=== PATIENT | female | born 1980 | race Caucasian/White ===

== ENCOUNTER 2016-11-26 15:41 | Emergency (ER) | payer OTHER ==
[2016-11-26] MEDS ORDERED: KETOROLAC 60 MG/2 ML VIAL IVP STA (17:19)
[2016-11-26] MEDS ORDERED: ONDANSETRON 4 MG/2 ML VIAL IVP STA (17:19)
[2016-11-26] MEDS ORDERED: ONDANSETRON 4 MG/2 ML VIAL ONE (17:26)
[2016-11-26] MEDS ORDERED: KETOROLAC 30 MG/ML VIAL ONE (17:26)
[2016-11-26] MEDS ORDERED: IOPAMIDOL-300 100 ML VIAL IVP ONE (19:23)
[2016-11-26] MEDS ORDERED: DEXAMETHASONE 10 MG/ML VIAL PO STA (20:16)
[2016-11-26] MEDS ORDERED: HYDROcod/ACET 5/325 Prepack 6 PO ONE ×2 (20:17→20:45)
[2016-11-26] MEDS ORDERED: metroNIDAZOLE 250 MG TABLET PO STA (20:36)
[2016-11-26] MEDS ORDERED: metroNIDAZOLE 250 MG TABLET PO ONE (20:45)
[2016-11-26] MEDS ORDERED: DEXAMETHASONE 10 MG/ML VIAL ONE (20:45)
== END 2016-11-26 20:53 | disposition home or self-care (01) ==
DX: N76.0 Acute vaginitis (principal); B96.89 Other specified bacterial agents as the cause of diseases classified elsewhere; R10.31 Right lower quadrant pain; K50.90 Crohn's disease, unspecified, without complications; E03.9 Hypothyroidism, unspecified; Z97.5 Presence of (intrauterine) contraceptive device
CPT/HCPCS: 36415; 74177; 80053; 81003; 81025; 83690; 85025; 87210; 87491; 87591; 96374; 96375; 99283; 99284; A9270; Q9967

== ENCOUNTER 2016-12-30 10:22 | Emergency (ER) | payer OTHER ==
[2016-12-30] MEDS: IOPAMIDOL-300 100 ML VIAL IVP ONE (12:34)
[2016-12-30] MEDS ORDERED: ONDANSETRON 4 MG/2 ML VIAL ONE (12:36)
[2016-12-30] MEDS ORDERED: HYDROmorphone 1 MG/ML SYRINGE ONE (12:36)
[2016-12-30] MEDS ORDERED: DEXAMETHASONE 10 MG/ML VIAL ONE (12:36)
[2016-12-30] MEDS ORDERED: KETOROLAC 30 MG/ML VIAL ONE (12:36)
[2016-12-30] MEDS: KETOROLAC 60 MG/2 ML VIAL IVP STA (12:42)
[2016-12-30] MEDS: DEXAMETHASONE 10 MG/ML VIAL IVP STA (12:42)
[2016-12-30] MEDS: ONDANSETRON 4 MG/2 ML VIAL IVP STA (12:44)
[2016-12-30] MEDS: HYDROmorphone 1 MG/ML SYRINGE IVP STA (12:48)
== END 2016-12-30 14:45 | disposition home or self-care (01) ==
DX: R10.31 Right lower quadrant pain (principal); K50.90 Crohn's disease, unspecified, without complications; E03.9 Hypothyroidism, unspecified
CPT/HCPCS: 36415; 74177; 80053; 81003; 81025; 83690; 85025; 85651; 96374; 96375; 99283; 99284; J1170; Q9967

== ENCOUNTER 2017-01-11 07:50 | Emergency (ER) | payer OTHER ==
[2017-01-11] MEDS ORDERED: ONDANSETRON 4 MG/2 ML VIAL IVP STA (08:16)
[2017-01-11] MEDS ORDERED: HYDROmorphone 1 MG/ML SYRINGE IVP STA (08:16)
[2017-01-11] MEDS ORDERED: ONDANSETRON 4 MG/2 ML VIAL ONE (08:19)
[2017-01-11] MEDS ORDERED: HYDROmorphone 1 MG/ML SYRINGE ONE (08:19)
[2017-01-11] MEDS ORDERED: KETOROLAC 30 MG/ML VIAL ONE (09:23)
[2017-01-11] MEDS ORDERED: KETOROLAC 60 MG/2 ML VIAL IVP STA (09:24)
== END 2017-01-11 10:25 | disposition home or self-care (01) ==
DX: M54.42 Lumbago with sciatica, left side (principal); M54.41 Lumbago with sciatica, right side; K50.90 Crohn's disease, unspecified, without complications; E03.9 Hypothyroidism, unspecified
CPT/HCPCS: 36415; 80053; 81003; 81025; 83690; 85025; 96374; 96375; 99283; 99284; J1170

== ENCOUNTER 2017-01-13 00:32 | Emergency (ER) | payer OTHER | END 2017-01-13 03:17 | disposition short-term general hospital (02) | DX: R20.0 Anesthesia of skin (principal); E03.9 Hypothyroidism, unspecified; K50.90 Crohn's disease, unspecified, without complications; M54.30 Sciatica, unspecified side; Z88.2 Allergy status to sulfonamides ==

== ENCOUNTER 2017-01-13 03:20 | Outpatient (CLI) | payer OTHER | END 2017-01-13 03:21 | disposition short-term general hospital (02) | DX: R20.0 Anesthesia of skin (principal) | CPT/HCPCS: A0425; A0428 ==

== ENCOUNTER 2017-08-12 19:10 | Emergency (ER) | payer OTHER ==
[2017-08-12] MEDS ORDERED: METOCLOPRAMIDE 10 MG/2 ML VIAL IVP STA (20:23)
[2017-08-12] MEDS ORDERED: diphenhydrAMINE INJ 50 MG/ML VIAL IVP STA (20:23)
[2017-08-12] MEDS ORDERED: SODIUM CHLORIDE 0.9% 1,000 ML IV ONE (20:23)
[2017-08-12] MEDS ORDERED: KETOROLAC 60 MG/2 ML VIAL IVP STA (20:23)
[2017-08-12] MEDS ORDERED: KETOROLAC 15 MG/ML VIAL ONE (20:31)
[2017-08-12] MEDS ORDERED: METOCLOPRAMIDE 10 MG/2 ML VIAL ONE (20:31)
[2017-08-12] MEDS ORDERED: diphenhydrAMINE INJ 50 MG/ML VIAL ONE (20:31)
[2017-08-12] MEDS ORDERED: LIDOCAINE 2% 10 ML MDV ONE (21:20)
--- NOTE | 2017-08-12 21:26 | ED Physician Documentation ---
PD HPI HEADACHE - Stated complaint Stated Complaint: HEADACHE/BODY PX - Chief complaint Chief Complaint: Neuro - History obtained from History obtained from: Patient, Family - History of Present Illness Timing - onset: How many days ago (9) Timing - onset during: Rest Timing - details: Gradual onset, Still present Worst headache ever?: Worst headache ever? (no) Location: Global Quality: Aching. No: Thunderclap Associated symptoms: Nausea, Eye pain. No: Fever, Stiff neck, Vomiting, Weakness, Numbness, Syncope, Seizure Improved by: Rest, Dark room Contributing factors: No: Anticoagulated Similar symptoms before: Work up / diagnostics, Treatment Recently seen: Not recently seen - Additional information Additional information: Patient is a 37 year old female with a history of migraines and fibromyalgia who is presenting to the emergency department for headache. patient states that it has been going on for 9 days and nothing seems to make it any better. Review of Systems Constitutional: denies: Fever, Chills Eyes: reports: Decreased vision, Photophobia Ears: denies: Ear pain, Drainage/discharge Nose: denies: Rhinorrhea / runny nose, Congestion Throat: denies: Dental pain / toothache, Oral lesions / sores, Sore throat Cardiac: denies: Chest pain / pressure, Palpitations Respiratory: denies: Cough, Wheezing GI: reports: Nausea. denies: Vomiting, Constipation, Diarrhea : reports: Reviewed and negative Skin: denies: Rash, Lesions, Abrasion (s) Musculoskeletal: denies: Neck pain, Back pain, Extremity pain, Joint pain Neurologic: reports: Headache. 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 : None HEENT: None Psych: Anxiety Musculoskeletal: None Derm: None - Past Surgical History Past Surgical History: Yes /BOILER TESTER: Dilation and currettage HEENT: Tonsil/Adenoidectomy - Present Medications Home Medications: Ambulatory Orders Medication Instructions Recorded Confirmed Cetirizine HCl [Zyrtec] 10 mg PO DAILY 02/27/13 08/12/17 Levothyroxine Sodium [Synthroid] 50 mcg PO DAILY 02/27/13 08/12/17 Ondansetron Odt [Zofran] 4 mg TL Q6H PRN #15 tablet 12/30/16 08/12/17 Budesonide [Uceris] 6 mg PO DAILY 01/11/17 08/12/17 Amitriptyline [Elavil] 25 mg PO DAILY 08/12/17 08/12/17 Duloxetine HCl [Cymbalta] 60 mg PO DAILY 08/12/17 08/12/17 Methocarbamol [Robaxin] 1 tab PO DAILY PM 08/12/17 08/12/17 raNITIdine [Zantac] 1 tab PO DAILY 08/12/17 08/12/17 - Allergies Allergies/Adverse Reactions: Allergies Allergy/AdvReac Type Severity Reaction Status Date / Time Sulfa (Sulfonamide Allergy Anaphylaxis Verified 01/13/17 00:41 Antibiotics) ibuprofen [From Motrin] AdvReac Nausea Verified 08/12/17 19:16 - Social History Does the pt smoke?: No Smoking Status: Never smoker Does the pt drink ETOH?: Yes Does the pt have substance abuse?: No - Immunizations Immunizations are current?: Yes - POLST Patient has POLST: No PD ED PE NORMAL - Vitals Vital signs reviewed: Yes - General General: Alert and oriented X 3, Well developed/nourished - HEENT HEENT: Atraumatic, PERRL, Moist mucous membranes - Neck Neck: Supple, no meningeal sign - Cardiac Cardiac: RRR, No murmur - Respiratory Respiratory: No respiratory distress, Clear bilaterally - Abdomen Abdomen: Soft, Non tender, Non distended - Derm Derm: Normal color, Warm and dry, No rash - Extremities Extremities: No deformity, Normal ROM s pain, No edema - Neuro Neuro: Alert and oriented X 3, 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 No: Stiff neck, Brudzinki's, Kernig's Results - Vitals Vitals: Vital Signs - 24 hr 08/12/17 08/12/17 19:20 21:57 Temperature 36.2 C L Heart Rate 124 H 89 Respiratory 18 18 Rate Blood Pressure 132/97 H 122/81 H O2 Saturation 97 100 Oxygen O2 Source Room air Procedures - Regional nerve block Nerve block site: Other (bilateral occipital plexus) Nerve block anesthesia: Lidocaine 2% Nerve block aftercare: Moderate Anesthesia PD MEDICAL DECISION MAKING - ED course Complexity details: reviewed old records, reviewed results, re-evaluated patient , considered differential, d/w patient, d/w family ED course: Patient was seen and examined at bedside. Patient was treated with fluids, toradol, reglan and bendaryl. Patient stated that she was feeling a bit better but still had pain. bilateral nerve blocks were performed with moderate relief. Patient had no neurological deficits and required no further work up. Patient was stable for discharge with outpatient follow up. Departure - Departure Disposition: 01 Home, Self Care Clinical Impression: Migraine Condition: Good Instructions: ED Headache Migraine Follow-Up: DELMY PISANO [Primary Care Provider] - Comments: You symptoms today are likely being caused by a migraine headache. You should continue with your headache management and follow up with your pmd. You might need to change your medications or follow up with neurologist if your headaches become more frequent or they continue to last this long. You may return to the emergency department at any time if necessary for new, worsening or uncontrollable symptoms. Discharge Date/Time: 08/12/17 21:58
[2017-08-12 21:58] VITALS: BP 122/81
== END 2017-08-12 21:58 | disposition home or self-care (01) ==
LOC: ED 19:10
DX: G43.909 Migraine, unspecified, not intractable, without status migrainosus (principal); M79.7 Fibromyalgia; E03.9 Hypothyroidism, unspecified; K50.90 Crohn's disease, unspecified, without complications
CPT/HCPCS: 64405; 96361; 96374; 96375; 99283; 99284

== ENCOUNTER 2017-09-25 15:35 | Outpatient (CLI) | payer OTHER | END 2017-09-25 15:36 | disposition critical access hospital (66) | LOC: EMS 15:35 | PROVIDERS: ATTEND Surgery | DX: F41.0 Panic disorder [episodic paroxysmal anxiety] (principal) | CPT/HCPCS: A0425; A0429 ==

== ENCOUNTER 2017-09-25 15:55 | Emergency (ER) | payer OTHER ==
[2017-09-25] MEDS ORDERED: LORazepam 2 MG/ML SYRINGE IM STA (16:05)
--- NOTE | 2017-09-25 16:08 | ED Physician Documentation ---
PD HPI CHEST PAIN - Stated complaint Stated Complaint: PANIC ATTACK - History obtained from History obtained from: Patient - History of Present Illness Timing - onset: Other (37-year-old woman with history of panic disorder and anxiety. She underwent a stressful event today and developed severe anxiety, a few minutes later developed left-sided chest pressure and tingling along the left side which continues. There is no possibility of .) Review of Systems Constitutional: denies: Fever, Chills Nose: denies: Rhinorrhea / runny nose, Congestion Cardiac: reports: Chest pain / pressure. denies: Palpitations, Pedal edema, Calf pain Respiratory: reports: Dyspnea. 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 and currettage HEENT: Tonsil/Adenoidectomy - Present Medications Home Medications: Ambulatory Orders Medication Instructions Recorded Confirmed Cetirizine HCl [Zyrtec] 10 mg PO DAILY 02/27/13 08/14/17 Levothyroxine Sodium [Synthroid] 50 mcg PO DAILY 02/27/13 08/14/17 Ondansetron Odt [Zofran] 4 mg TL Q6H PRN #15 tablet 12/30/16 08/14/17 Budesonide [Uceris] 6 mg PO DAILY 01/11/17 08/14/17 Amitriptyline [Elavil] 25 mg PO DAILY 08/12/17 08/14/17 Duloxetine HCl [Cymbalta] 60 mg PO DAILY 08/12/17 08/14/17 Methocarbamol [Robaxin] 1 tab PO DAILY PM 08/12/17 08/14/17 raNITIdine [Zantac] 1 tab PO DAILY 08/12/17 08/14/17 Lorazepam [Ativan] 1 mg PO TID PRN #7 tablet 09/25/17 - Allergies Allergies/Adverse Reactions: Allergies Allergy/AdvReac Type Severity Reaction Status Date / Time gabapentin Allergy Anaphylaxis Verified 09/25/17 16:16 Sulfa (Sulfonamide Allergy Anaphylaxis Verified 09/25/17 16:16 Antibiotics) ibuprofen [From Motrin] AdvReac Nausea Verified 09/25/17 16:16 - Social History Does the pt smoke?: No Smoking Status: Never smoker Does the pt drink ETOH?: Yes Does the pt have substance abuse?: No - Immunizations Immunizations are current?: Yes - POLST Patient has POLST: No PD ED PE NORMAL - Vitals Vital signs reviewed: Yes - General General: Alert and oriented X 3, No acute distress, Other (visibly anxious) - Neck Neck: Supple, no meningeal sign, No bony TTP - Cardiac Cardiac: RRR, No murmur - Respiratory Respiratory: No respiratory distress, Clear bilaterally - Abdomen Abdomen: Non tender - Extremities Extremities: No edema, No calf tenderness / cord - Neuro Neuro: Alert and oriented X 3, Normal speech Results - Vitals Vitals: Vital Signs - 24 hr 09/25/17 09/25/17 16:20 16:34 Temperature 36.9 C Heart Rate 107 H 95 Respiratory 20 Rate Blood Pressure 139/102 H 128/89 H O2 Saturation 97 Oxygen O2 Source Room air - EKG (time done) 1611 Rate: Rate (enter#) (95) Rhythm: NSR [place]: Normal Intervals: Normal [place] QRS: Normal Ischemia: Normal ST segments Computer interpretation: Agree with computer PD MEDICAL DECISION MAKING - ED course ED course: 37-year-old woman with panic attack associated chest pain. Her EKG is completely normal. After the Administration of a milligram of Ativan IM she is appearing much more calm and feeling better. Departure - Departure Disposition: 01 Home, Self Care Clinical Impression: Anxiety Condition: Good Record reviewed to determine appropriate education?: Yes Instructions: ED Panic Attack Prescriptions: Lorazepam [Ativan] 1 mg PO TID PRN #7 tablet PRN Reason: Anxiety Comments: Follow-up with your doctor and your counselor. Return if worse. Your blood pressure was elevated today on check into the emergency department. This does not mean that you have hypertension, it is a common phenomenon to come to the emergency department and have elevated blood pressure. I recommend that you see your primary care physician within the week to have it rechecked when you are feeling better.
[2017-09-25] MEDS ORDERED: LORazepam 2 MG/ML SYRINGE ONE (16:34)
[2017-09-25 17:05] VITALS: BP 136/91
== END 2017-09-25 17:04 | disposition home or self-care (01) ==
LOC: EDUNIT# → ED 15:55
DX: F41.9 Anxiety disorder, unspecified (principal); E03.9 Hypothyroidism, unspecified; K50.90 Crohn's disease, unspecified, without complications; R03.0 Elevated blood-pressure reading, without diagnosis of hypertension; R07.9 Chest pain, unspecified
CPT/HCPCS: 93005; 96372; 99283; J2060

== ENCOUNTER 2017-10-31 19:04 | Emergency (ER) | payer OTHER ==
[2017-10-31] MEDS ORDERED: SODIUM CHLORIDE 0.9% 1,000 ML IV ONE ×2 (19:21→20:23)
[2017-10-31 20:01] LABS: BASOPHILS % (AUTO) 0.6 %; EOSINOPHILS % (AUTO) 0.5 %; LYMPHOCYTES # (AUTO) 1.4 10^3/uL (1.5-3.5); LYMPHOCYTES % (AUTO) 20.3 %; MEAN CORPUSCULAR HEMOGLOBIN 27.6 pg (27.0-31.0); MEAN CORPUSCULAR HGB CONC 33.5 g/dL (32.0-36.0); MEAN CORPUSCULAR VOLUME 82.4 fL (81.0-99.0); MEAN PLATELET VOLUME 8.1 fL (7.9-10.8); MONOCYTES # (AUTO) 0.3 10^3/uL (0.0-1.0); MONOCYTES % (AUTO) 4.5 %; NEUTROPHILS # (AUTO) 5.3 10^3/uL (1.5-6.6); NEUTROPHILS % (AUTO) 74.1 %; PLT - PLATELET COUNT 224 10^3/uL (130-450); RED BLOOD COUNT 5.08 10^6/uL (4.20-5.40); RED CELL DISTRIBUTION WIDTH 14.4 % (12.0-15.0); WHITE BLOOD COUNT 7.1 x10^3/uL (4.8-10.8)
[2017-10-31 20:07] LABS: GLUCOSE, URINE (UA) NEGATIVE (NEGATIVE); KETONES,URINE (UA) >=80 mg/dL (NEGATIVE); LEUKOCYTE ESTERASE, URINE NEGATIVE (NEGATIVE); NITRITE,URINE NEGATIVE (NEGATIVE); OCCULT BLOOD,URINE NEGATIVE (NEGATIVE); PROTEIN,URINE TRACE mg/dL (NEGATIVE); UROBILINOGEN,URINE 0.2 (NORMAL) E.U./dL (NORMAL)
[2017-10-31 20:11] LABS: ALBUMIN 4.4 g/dL (3.2-5.5); ALBUMIN/GLOBULIN RATIO 1.1 (1.0-2.2); BILIRUBIN,TOTAL 0.9 mg/dL (0.2-1.0); CALCIUM 9.1 mg/dL (8.5-10.3); CREATININE 0.7 mg/dL (0.4-1.0); TOTAL PROTEIN 8.3 g/dL (6.7-8.2)
--- NOTE | 2017-10-31 20:21 | ED Physician Documentation ---
PD HPI URI - Stated complaint Stated Complaint: FEVER/VERTIGO - Chief complaint Chief Complaint: Fever - History obtained from History obtained from: Patient - History of Present Illness Timing - onset: How many weeks ago (1) Timing duration: Weeks (1) Timing details: Gradual onset, Still present, Waxing and waning Associated symptoms: Fever, Chills, Sweats, Nasal congestion, Rhinorrhea, Sore throat, Dry cough, Other (N/V dizziness) Contributing factors: Sick contact (has 6 kids at home) Improves by: Rest, Medication Worsened by: Activity Similar symptoms before: Has not had sx before Recently seen: Not recently seen - Additional information Additional information: 37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 She is subsequently become much worse with fever dizziness nausea and vomiting. She has not been able to keep up with her fluids and is come in now feeling dehydrated. Review of Systems Constitutional: reports: Fever, Chills, Myalgias, Fatigue, Sweats Eyes: denies: Decreased vision Ears: denies: Ear pain Nose: reports: Rhinorrhea / runny nose, Congestion Throat: reports: Sore throat Cardiac: denies: Chest pain / pressure, Palpitations Respiratory: reports: Cough. 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 : None HEENT: None Psych: Anxiety Musculoskeletal: None Derm: None - Past Surgical History Past Surgical History: Yes /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 and currettage HEENT: Tonsil/Adenoidectomy - Present Medications Home Medications: Ambulatory Orders Medication Instructions Recorded Confirmed Cetirizine HCl [Zyrtec] 10 mg PO DAILY 02/27/13 08/14/17 Levothyroxine Sodium [Synthroid] 50 mcg PO DAILY 02/27/13 08/14/17 Ondansetron Odt [Zofran] 4 mg TL Q6H PRN #15 tablet 12/30/16 08/14/17 Budesonide [Uceris] 6 mg PO DAILY 01/11/17 08/14/17 Amitriptyline [Elavil] 25 mg PO DAILY 08/12/17 08/14/17 Duloxetine HCl [Cymbalta] 60 mg PO DAILY 08/12/17 08/14/17 Methocarbamol [Robaxin] 1 tab PO DAILY PM 08/12/17 08/14/17 raNITIdine [Zantac] 1 tab PO DAILY 08/12/17 08/14/17 Lorazepam [Ativan] 1 mg PO TID PRN #7 tablet 09/25/17 Azithromycin [Zithromax] 250 mg PO DAILY #6 tablet 10/31/17 Meclizine HCl [Bonine] 25 mg PO Q6HR PRN #20 tab.chew 10/31/17 Ondansetron Odt [Zofran] 4 mg TL Q6H PRN #10 tablet 10/31/17 - Allergies Allergies/Adverse Reactions: Allergies Allergy/AdvReac Type Severity Reaction Status Date / Time gabapentin Allergy Anaphylaxis Verified 10/31/17 19:17 Sulfa (Sulfonamide Allergy Anaphylaxis Verified 10/31/17 19:17 Antibiotics) ibuprofen [From Motrin] AdvReac Nausea Verified 10/31/17 19:17 - Social History Does the pt smoke?: No Smoking Status: Never smoker Does the pt drink ETOH?: Yes Does the pt have substance abuse?: No - Immunizations Immunizations are current?: Yes - POLST Patient has POLST: No PD ED PE NORMAL - Vitals Vital signs reviewed: Yes (febrile tachy and hypertensive) - General General: Alert and oriented X 3, No acute distress, Well developed/nourished - HEENT HEENT: Atraumatic, PERRL, EOMI, Other (The right TM is mildly inflamed the left is not the pharynx is without tonsils and minimal inflamation. There are 2 beats of nystagmus to the left and 3 to the right. ) - Neck Neck: Supple, no meningeal sign, No bony TTP - Cardiac Cardiac: No murmur, Other (tachy) - Respiratory Respiratory: No respiratory distress, Clear bilaterally - Abdomen Abdomen: Soft, Other (mild general tenderenss. ) - Derm Derm: Normal color, Warm and dry, No rash - Extremities Extremities: No deformity, No edema - Neuro Neuro: No motor deficit, No sensory deficit Eye Opening: Spontaneous Motor: Obeys Commands Verbal: Oriented GCS Score: 15 - Psych Psych: Normal mood, Normal affect Results - Vitals Vitals: Vital Signs - 24 hr 10/31/17 10/31/17 10/31/17 19:12 20:44 22:25 Temperature 37.6 C H 36.7 C Heart Rate 133 H 122 H 118 H Respiratory 17 20 20 Rate Blood Pressure 145/102 H 129/96 H 155/102 H O2 Saturation 95 100 100 10/31/17 23:00 Temperature Heart Rate 95 Respiratory 18 Rate Blood Pressure 135/83 H O2 Saturation 98 Oxygen O2 Source Room air - Labs Labs: Laboratory Tests 10/31/17 10/31/17 10/31/17 19:36 19:36 19:36 WBC 7.1 RBC 5.08 Hgb 14.0 Hct 41.9 MCV 82.4 MCH 27.6 MCHC 33.5 RDW 14.4 Plt Count 224 MPV 8.1 Neut # 5.3 Lymph # 1.4 L [place] # 0.3 Eos # 0.0 Baso # 0.0 Absolute Nucleated RBC 0.01 Nucleated RBC % 0.2 Sodium 132 L Potassium 3.7 Chloride 98 L Carbon Dioxide 17 L Anion Gap 17.0 H BUN 10 Creatinine 0.7 Estimated GFR (MDRD) 95 Glucose 104 H Calcium 9.1 Total Bilirubin 0.9 AST 42 ALT 45 Alkaline Phosphatase 128 H Total Protein 8.3 H Albumin 4.4 Globulin 3.9 Albumin/Globulin Ratio 1.1 Lipase 21 L Urine Color Urine Clarity Urine pH Ur Specific [place] Urine Protein Urine Glucose (UA) Urine Ketones Urine Occult Blood Urine Nitrite Urine Bilirubin Urine Urobilinogen Ur Leukocyte Esterase Ur Microscopic Review Urine Culture Comments Urine HCG, Qual Influenza A (Rapid) Negative Influenza B (Rapid) Negative Influenza Types A,B Ag - 10/31/17 19:36 WBC RBC Hgb Hct MCV MCH MCHC RDW Plt Count MPV Neut # Lymph # [place] # Eos # Baso # Absolute Nucleated RBC Nucleated RBC % Sodium Potassium Chloride Carbon Dioxide Anion Gap BUN Creatinine Estimated GFR (MDRD) Glucose Calcium Total Bilirubin AST ALT Alkaline Phosphatase Total Protein Albumin Globulin Albumin/Globulin Ratio Lipase Urine Color YELLOW Urine Clarity CLEAR Urine pH 6.0 Ur Specific [place] >=1.030 H Urine Protein TRACE Urine Glucose (UA) NEGATIVE Urine Ketones >=80 H Urine Occult Blood NEGATIVE Urine Nitrite NEGATIVE Urine Bilirubin NEGATIVE Urine Urobilinogen 0.2 (NORMAL) Ur Leukocyte Esterase NEGATIVE Ur Microscopic Review NOT INDICATED Urine Culture Comments NOT INDICATED Urine HCG, Qual NEGATIVE Influenza A (Rapid) Influenza B (Rapid) Influenza Types A,B Ag PD MEDICAL DECISION MAKING - ED course Complexity details: reviewed old records, reviewed results, re-evaluated patient , considered differential, d/w patient ED course: 37 y/o female with cough and congestion has OM on exam and has had fever and flu like illness likely viral and she has now developed spinning dizziness and vomiting. She is given intravenous saline and meclizine, Rocephin and Zofran. She has marked improvement with this. She subsequently given dexamethasone as well. Departure - Departure Disposition: Home, Self Care Clinical Impression: Labyrinthitis Qualifiers: Laterality: bilateral Qualified Code(s): H83.03 - Labyrinthitis, bilateral Otitis media Qualifiers: Otitis media type: suppurative Chronicity: acute Laterality: right Recurrence: not specified as recurrent Spontaneous tympanic membrane rupture: without spontaneous rupture Qualified Code(s): H66.001 - Acute suppurative otitis media without spontaneous rupture of ear drum, right ear Condition: Stable Instructions: ED Labyrinthitis, ED Otitis Media Acute Adult Follow-Up: [facility] [Provider Group] Prescriptions: Meclizine HCl [Bonine] 25 mg PO Q6HR PRN #20 tab.chew PRN Reason: Dizziness Azithromycin [Zithromax] 250 mg PO DAILY #6 tablet Ondansetron Odt [Zofran] 4 mg TL Q6H PRN #10 tablet PRN Reason: Nausea / Vomiting Comments: Today in the Emergency Department your blood pressure was elevated. This can happen from the stress of the visit itself, from a current illness or circumstance or from uncontrolled hypertension. If you take blood pressure medications take your usual mediations, have your blood pressure re-checked in an appropriate setting and follow up any elevation with your primary care doctor.
[2017-10-31 20:30] LABS: BILIRUBIN,URINE NEGATIVE (NEGATIVE); CLARITY,URINE CLEAR (CLEAR); HCG UR QUAL NEGATIVE; ICTOTEST,URINE NEGATIVE
[2017-10-31] MEDS ORDERED: cefTRIAXone 1 GM in SODIUM CHLORIDE 0.9% MINIBAG 100 ML IV STA (20:50)
[2017-10-31] MEDS ORDERED: MECLIZINE 12.5 MG TABLET PO STA (20:50)
[2017-10-31] MEDS ORDERED: ONDANSETRON 4 MG/2 ML VIAL IVP STA (20:50)
[2017-10-31 23:01] VITALS: BP 135/83
== END 2017-10-31 23:25 | disposition home or self-care (01) ==
LOC: ED 19:04
DX: H83.03 Labyrinthitis, bilateral (principal); R03.0 Elevated blood-pressure reading, without diagnosis of hypertension
CPT/HCPCS: 36415; 80053; 81003; 81025; 83690; 85025; 87275; 87276; 96361; 96365; 96375; 99283; 99284; A9270; 81001; 87086